=== PATIENT | female | born 1985 | race Caucasian/White ===

== ENCOUNTER 2019-02-05 18:33 | Emergency (ER) | payer OTHER ==
[~2019-02-05] VITALS: Ht 162.6 cm; Wt 141.3 kg
[~2019-02-05 18:33] MED LIST: KEPPRA1000 M1 PO; TRAMADOL50 M1 PO
[2019-02-05 18:43] VITALS: Ht 162.6 cm; Wt 141.3 kg
[2019-02-05 19:53] LABS: BASOPHIL % 1.3 % (0-2); PLATELET COUNT 318 x10^3mcL (130-400); RED CELL DISTRIBUTION WIDTH 13.1 % (11.5-14.5)
[2019-02-05 19:54] LABS: microscopic required? YES; urine erythrocyte NEGATIVE (NEGATIVE)
[2019-02-05 20:05] LABS: CALCIUM 8.9 mg/dL (8.5-10.1); CARBON DIOXIDE 28.8 mmol/L (21-32); CHLORIDE SERUM 99 mmol/L (98-107); CREATININE SERUM 0.8 mg/dL (0.6-1.0); GFR1 > 60 mL/min; GLUCOSE SERUM 262 mg/dL (74-106); SODIUM SERUM 135 mmol/L (136-145)
[2019-02-05 20:10] LABS: ALKALINE PHOSPHATASE 87 U/L (46-116); ALT/SGPT 40 U/L (14-59); AST/SGOT 34 U/L (15-37); TOTAL PROTEIN, SERUM 7.8 g/dL (6.4-8.2)
[2019-02-05 20:15] LABS: ALBUMIN 3.3 g/dL (3.4-5.0); CHOLESTEROL 240 mg/dL (<200); HDL CHOLESTEROL 78 mg/dL (40-60)
[2019-02-05 22:45] LABS: AMPHETAMINE QUAL UR NONE DETECTED (See below)
[2019-02-06 03:54] VITALS: BP 103/61
== END 2019-02-06 03:54 | disposition home or self-care (01) ==
LOC: ED 18:33
PROVIDERS: Emergency Medicine
DX: R51 Headache (principal); E11.65 Type 2 diabetes mellitus with hyperglycemia; N39.0 Urinary tract infection, site not specified; J45.909 Unspecified asthma, uncomplicated; G40.909 Epilepsy, unspecified, not intractable, without status epilepticus; M79.7 Fibromyalgia; E66.01 Morbid (severe) obesity due to excess calories; Z68.43 Body mass index [BMI] 50.0-59.9, adult; Z88.5 Allergy status to narcotic agent; Z88.8 Allergy status to other drugs, medicaments and biological substances
CPT/HCPCS: 82962; J0696; J1815; J1885; J2060; J7030; J7060